=== PATIENT | female | born 1995 | race Caucasian/White ===

== ENCOUNTER 2016-12-03 23:08 | Emergency (ER) | payer SELFPAY ==
--- NOTE | 2016-12-04 01:39 | ED NURSING NOTES ---
Clinical Report - Nurses [facility] [address] [place] [address] 12/03/2016 23:10 Patient: DOLORES UNDERWOOD TRIAGE Triage time 23:15. Acuity: LEVEL 3. Chief Complaint: VOMITING and DIARRHEA. 23:21. Alert. --23:21 Aramis Garsia R.N. 23:14 12/03/16. BP: 199/77. HR: 138. RR: 16. O2 saturation: 97%. Temp: 98.6 F. Pain level now: 0/10. --23:21 Aramis Garsia R.N. Weight: 83.9 kg stated. Height/Length: 65.5 inches Per Patient. BMI: 30.3. --23:21 Aramis Garsia R.N. Medications None. --23:18 Aramis Garsia R.N. Medication/allergy information source: the patient. --23:21 Aramis Garsia R.N. Allergies No Known Drug Allergy. --23:18 Aramis Garsia R.N. History Arrived by private vehicle. Historian: patient. Accompanied by friend. This started today. 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 PAST MEDICAL HX: Immunizations: up-to-date. Last normal menstrual period was 1 week ago. SOCIAL HX: Current every day light tobacco smoker- less than 1/2 a pack per day. Occasional alcohol use. No drug use. No recent travel. No infectious disease exposure. ABUSE ASSESSMENT: No report of abuse. FALL RISK ASSESSMENT: Fall risk assessment completed. No fall risk identified. NUTRITIONAL RISK ASSESSMENT: The nutritional risk assessment revealed no deficiencies. FUNCTIONAL ASSESSMENT: Functional assessment: no impairments noted. LEARNING NEEDS ASSESSMENT: The learning needs assessment revealed no barriers. SKIN INTEGRITY ASSESSMENT: Skin integrity risk assessment completed. No skin integrity risk identified. --23:21 Aramis Garsia R.N. PROBLEMS: no known problems. ADDITIONAL SURGERIES: Dog bite repair. --23:19 Aramsi Garsia R.N. Interventions ID band on patient. To treatment room. --23:21 Aramis Garsia R.N. PHYSICAL ASSESSMENT 23:15. Ambulatory to room. Patient gowned. GENERAL / NEURO / PSYCH: Alert. Oriented X 4. HEENT: Mucous membranes are pink. RESPIRATORY: Respirations not labored. SKIN: Skin is warm and dry. --23:16 Aramis Garsia R.N. NURSING PROGRESS NOTES Head of bed elevated. Two patient identifiers checked. Call light placed in reach. Bed placed in lowest position. Brakes of bed on. Patient ready for evaluation- chart flagged. --23:15 Aramis Garsia R.N. 23:15. Patient ID band checked for patient name and birthdate: patient confirmed. Clean catch urine collected with return of yellow-colored adrián-colored clear urine; sample sent to lab for urinalysis. Specimen labeled in the presence of the patient. --23:21 Aramis Garsia R.N. 23:25 12/03/2016 Site #1 started via IV in the right antecubital space with an 22g angiocath, with aseptic technique and good blood return; one attempt. Blood drawn: rainbow set. Labeled in the presence of the patient and sent to the lab. Saline lock flushed with 10 mL saline (by Naomi CARMONA). --23:27 Aramis Garsia R.N. 23:27 12/03/2016 Started bag #1 1000 mL IV Fluids IV NS (Saline); at 1000 mL/hr over 1 hour(s) via site #1 --23:28 Aramis Garsia R.N. 23:31 12/03/2016 Zofran (Ondansetron HCl) IVP 4 mg given over 2 minute(s) via site #1. Allergies verified and confirmed 5 rights. IV patency established. IV site checked: no pain, redness, or swelling. IV flushed thoroughly pre- and post-medication administration. --23:33 Aramis Garsia R.N. 23:47 12/03/2016 Imodium (Loperamide HCl) PO 2 mg given. Allergies verified and confirmed 5 rights. --23:47 Aramis Garsia R.N. 01:25 12/04/16. HR: 98. O2 saturation: 100%. --01:27 Aramis Garsia R.N. 01:15. The patient is calm and resting quietly. SKIN: Skin is warm and dry. Skin color within normal limits. --:27 Aramis Garsia R.N. 00:53 12/04/2016 IV Fluids IV NS Discontinued: bag #1 infused. Total amount infused: 1000 mL. IV patency established. IV site checked: no pain, redness, or swelling. IV flushed thoroughly. --02: Aramis Garsia R.N. 01:56. The patient is calm and resting quietly. SKIN: Skin is warm and dry. Skin color within normal limits. --02: Aramis Garsia R.N. DISPOSITION / DISCHARGE 01:54 12/04/2016 Site #1 removed upon discharge. Catheter intact. Bandage applied. --: Aramis Garsia R.N. Departure time: 01:58. Condition at departure: stable. No learning barriers present. Discharge instructions provided and reviewed with stator connector and the patient. Reviewed medication(s) side effects, precautions, dosing and course information. Prescription(s) given to the patient. Patient and stator connector verbalized understanding. Written instructions provided in Paraguayan. The patient was discharged home and accompanied by stator connector. She left the Emergency Department ambulatory and via private vehicle. Cast Iron Drain Pipe Layer driving. FALL RISK ASSESSMENT: Fall risk assessment completed. No fall risk identified. --: Aramis Garsia R.N. 01:52 12/04/16. BP: 103/57. HR: 99. RR: 16. O2 saturation: 99%. Pain level now: 0/10. --: Aramis Garsia R.N. Locked/Released at 12/04/2016 2:02 by Aramis Garsia R.N.
--- NOTE | 2016-12-04 01:39 | ED CLINICAL REPORT ---
Clinical Report - Physicians/Mid Levels [facility] [address] [place] [address] 12/03/2016 23:10 Patient: DOLORES UNDERWOOD Arrived- By private vehicle. Historian- patient. HISTORY OF PRESENT ILLNESS Chief Complaint: VOMITING and DIARRHEA. This started for the past day and is still present (staying the same). It was abrupt in onset and has been intermittent but is not gone now. No recent travel. She has had nausea, vomiting and diarrhea. No black stools, bloody stools, abdominal pain, history of possible bad food exposure or known contact with a sick individual. No change in routine. Has not recently been camping or on antibiotics. The illness is described as moderate. Similar symptoms previously: None. Recent medical care: Not recently seen/assessed. REVIEW OF SYSTEMS No fever or skin rash. All systems otherwise negative, except as recorded above. PAST HISTORY See nurses notes. Problems: no known problems. Medications: None. Allergies: No Known Drug Allergy. SOCIAL HISTORY Smoker- current status unknown. No alcohol use or drug use. No recent travel. Is a local resident. ADDITIONAL NOTES The nursing notes have been reviewed. PHYSICAL EXAM Vital Signs: 12/03/2016 23:14 BP: 199/77. HR: 138. RR: 16. O2 saturation: 97%. Temp: 98.6 F. Pain level now: 0/10. Blood pressure normal. Oxygen saturation normal. Appearance: Alert. Oriented X3. No acute distress. Eyes: Pupils equal, round and reactive to light. Eyes normal inspection. ENT: Ears normal. Nose normal. Pharynx normal. Neck: Normal inspection. Neck supple. CVS: Normal heart rate and rhythm. Heart sounds normal. Pulses normal. Respiratory: No respiratory distress. Breath sounds normal. Abdomen: Soft and nontender. Bowel sounds normal. No mass. No abdominal tenderness. Back: Normal inspection. Skin: Skin warm and dry. Normal skin color. No rash. Normal skin turgor. Extremities: Extremities exhibit normal ROM. No lower extremity edema. LABS, X-RAYS, AND EKG Laboratory Tests: UA-Culture if indicated: (MERCEDES: 12/03/2016 23:25) ( [facility] [place] 23:50[place] Final results Test Result Flag Units (Reference) URINE COLOR YELLOW URINE APPEARANCE CLEAR URINE GLUCOSE NEGATIVE (NEGATIVE) URINE BILIRUBIN 2+ (NEGATIVE) URINE KETONE 2+ (NEGATIVE) URINE SPECIFIC GRAVITY >= 1.030 (1.010-1.030) URINE PH 6.0 (5.0-8.0) URINE PROTEIN 2+ (NEGATIVE) URINE UROBILINOGEN 0.2 EU/dL (0.2-1.0) URINE NITRITE NEGATIVE (NEGATIVE) URINE BLOOD NEGATIVE (NEGATIVE) URINE LEUK ESTERASE NEGATIVE (NEGATIVE) URINE RBC 0-1 rbc/hpf (0-1) URINE WBC 1-3 wbc/hpf (0-1) URINE EPITHELIAL CELLS 1-3 EPI/hpf (0-5) URINE BACTERIA MODERATE (2+ TO 3+) (NONE SEEN) URINE COMMENT CULTURE INDICATED URINE CULTURES ARE SET-UP BASED ON THE FOLLOWING CRITERIA:POSITIVE NITRITEPOSITIVE LEUKOCYTE ESTERASEGREATER THAN 10 WHITE BLOOD CELLSMODERATE (2+) OR GREATER BACTERIA CBC w Diff: (MERCEDES: 12/03/2016 23:25) ( [facility] [place] 23:49) Final results Test Result Flag Units (Reference) WHITE BLOOD COUNT 18.7 H K/uL (4.5-11.5) RED BLOOD COUNT 5.61 H M/uL (4.00-5.20) HEMOGLOBIN 16.8 H gm/dL (12.0-16.0) HEMATOCRIT 50.8 H % (36.0-46.0) MEAN CELL VOLUME 91 fL (80-100) MEAN CORPUSCULAR HGB 30 pg (26-34) MEAN CORPUSCULAR HGB CONC 33 g/dL (31-37) RED CELL DISTRIBUTION WIDTH 12.5 % (11.6-14.8) PLATELET COUNT 219 K/uL (150-400) LYMPH % 4.6 L % (25-40) MONO % 3.0 % (3-14) GRANULOCYTE % 92.4 H (53-90) CMP: (MERCEDES: 12/03/2016 23:25) ( [facility] [place]/03/2016 23:59) Final results Test Result Flag Units (Reference) GLUCOSE 136 H mg/dL (70-110) BUN 15 mg/dL (7-18) CREATININE 1.0 mg/dL (0.6-1.3) Estimated GFR >60 mL/min Estimated GFR- >60 mL/min Note: Persistent reduction over 3 months in eGFR<60 mL/min/1.73 m2 defines CKD. Patients with eGFR values>=60 mL/min/1.73 m2 may also have CKD if evidence ofpersistent proteinuria. Additional information may be foundat www.kidney.org. SODIUM 142 mmol/L (136-145) POTASSIUM 4.1 mmol/L (3.5-5.1) CHLORIDE 105 mmol/L (98-107) CARBON DIOXIDE 23 mmol/L (21-32) CALCIUM 9.0 mg/dL (8.5-10.1) TOTAL PROTEIN 8.0 g/dL (6.4-8.2) ALBUMIN 4.4 g/dL (3.3-5.0) BILIRUBIN, TOTAL 0.6 mg/dL (0.0-1.0) ALKALINE PHOSPHATASE 64 U/L (46-116) AST (SGOT) 19 U/L (15-37) ALT (SGPT) 44 U/L (12-78) LIPASE 115 U/L (73-393) BETA HCG, QUANTITATIVE <1 mIU/mL REFERENCE RANGE:Adult Males: <2 mIU/mLNon- Females: <6 mIU/mL Females:Approximate Approximate hCGGestational Age Range (mIU/mL) 0-1 week 0-501-2 weeks 40-3002-3 weeks 100-39340-9 weeks 500-90196-7 months 5,000-200,0002-3 months 10,000-100,0002nd trimester 3,000-50,0003rd trimester 1,000-50,000 . PROGRESS AND PROCEDURES Course of Care: The patient is a 21-year-old female presenting for evaluation nausea, vomiting, diarrhea. Patient is in no acute distress. At this time differential diagnosis includes hepatitis, gastritis, appendicitis, urinary tract infection, Or ectopic . Patient is agreeable to the treatment plan. Urinalysis, CMP, CBC, lipase have been ordered. Nausea vomiting medication and also been ordered as well as antidiarrheal medication. Patient is agreeable to treatment and plan. If workup does not show any acute abnormalities, do not feel imaging would be required at this time. Workup does not show any acute abdomen maladies. Symptoms had significantly improved while here in the emergt unremarkable laboratory tests patient is a good outpatient candidate. Do not feel patient has state abnormality requiring further emergency department evaluation or workup. Patient's abdomen is nontender. Patient is not reporting any pain while here in the emergency department. Do not fill patient is a surgical abdomen. There are no electrolyte abnormalities or liver enzymes and abnormalities associated with symptoms here in the emergency department today. Patient continues to be nontoxic and is in no acute distress. Discussed with patient workup, diagnosis, home care, follow-up, and return precautions. All questions answered. The patient expressed understanding of these instructions and was agreeable to them. Disposition: Discharged. Condition: good. CLINICAL IMPRESSION Vomiting with nausea (acute). Diarrhea (acute). 12/04/2016 01:25 HR: 98. O2 saturation: 100%. 12/03/2016 23:14 BP: 199/77. HR: 138. RR: 16. O2 saturation: 97%. Temp: 98.6 F. Pain level now: 0/10. Blood pressure normal. Oxygen saturation normal. Essential hypertension. Mild leukocytosis (acute). No bandemia. INSTRUCTIONS Warnings: GENERAL WARNINGS: Return or contact your physician immediately if your condition worsens or changes unexpectedly, if not improving as expected, or if other problems arise. SPECIFICALLY, return if you develop pain in the abdomen, fever, vomiting, the inability to keep fluids down, blood in vomitus, blood in diarrhea, fainting or lightheadedness. Your Current Medications: CONTINUE TAKING THE FOLLOWING MEDICATIONS: None*. Prescription Medications: Zofran (orally disintegrating tablets) 4 mg: take 1 orally every 8 hours as needed for nausea and vomiting. Dispense five (5). No refill. Substitution is permissible. OTC Medications: Imodium (available over the counter): take according to label instructions. Follow-up: Return to the emergency department as needed. Follow up with your doctor in three days. Reason for referral: recheck today's concerns. Summary of care provided to patient via paper. Screening today revealed the patient's blood pressure to be in the hypertensive range. The patient should follow up with a primary care provider for blood pressure management. Understanding of the discharge instructions verbalized by patient. Follow-up with: [facility], , , [address], , [place], [address] Follow up. Reason for referral: contact if you do not have a primary care doctor and would like one. Summary of care provided to patient via paper. (Electronically signed by Benigno Worthy Dr. 12/04/2016 7:57)
--- NOTE | 2016-12-04 01:39 | ED ORDER SUMMARY ---
..... Patient: DOLORES UNDEWROOD OrderSheet [facility] VisitID: [id number] [place] [address] 21y, F Registration Date/Time: 12/03/2016 ORDER SHEET Weight: 83.9 kg (stated) Allergies: No Known Drug Allergy GENERAL ORDERS: CBC w Diff Urgent (23:12/03/2016 Jason Verduzco) (Ack 23:29 Minal) (23:33 JQuivey R.N.) CMP Urgent (:12/03/2016 Jason Verduzco) (Ack 23:29 Minal) (23:33 JQuivey R.N.) UA-Culture if indicated Urgent (:12/03/2016 Jason Verduzco) (Ack 23:30 Minal) (23:33 JQuivey R.N.) Lipase Urgent (:12/03/2016 Jason Verduzco) (Ack 23:30 Minal) (23:33 JQuivey R.N.) Serum Quantitative Urgent (:12/03/2016 Jason Verdzuco) (Ack 23:30 Minal) (23:33 JQuivey R.N.) MEDICATION ORDERS: Imodium PO 2 mg (once 15 minutes after zofran) (:12/03/2016 Jason Verduzco) (Ack 23:30 JQuivey R.N.) (23:47 JQuivey R.N.) IV FLUIDS: IV NS : initial bolus 1000 mL (1000 mL/hr), then none - for X1 (NOW) (:12/03/2016 Jason Verduzco) (23:28 JQuivey R.N.) Zofran IV 4 mg (NOW) (:12/03/2016 Jason Verduzco) (Ack 23:30 JQuivey R.N.) (23:33 JQuivey R.N.) ORDER SHEET NOTES: [Electronically signed by Aramis Garsia R.N. (02:12/04/2016)] [Electronically signed by Benigno Worthy Dr. (07:57 12/04/2016)] [Electronically locked/signed by Aramis Garsia R.N. (02:02 12/04/2016)]
--- NOTE | 2016-12-04 01:39 | ED NURSING NOTES ---
Clinical Report - Nurses [facility] [address] [place] [address] 12/03/2016 23:10 Patient: DOLORES UNDERWOOD TRIAGE Triage time 23:15. Acuity: LEVEL 3. Chief Complaint: VOMITING and DIARRHEA. 23:21. Alert. --23:21 Aramis Garsia R.N. 23:14 12/03/16. BP: 199/77. HR: 138. RR: 16. O2 saturation: 97%. Temp: 98.6 F. Pain level now: 0/10. --23:21 Aramis Garsia R.N. Weight: 83.9 kg stated. Height/Length: 65.5 inches Per Patient. BMI: 30.3. --23:21 Aramis Garsia R.N. Medications None. --23:18 Aramis Garsia R.N. Medication/allergy information source: the patient. --23:21 Aramis Garsia R.N. Allergies No Known Drug Allergy. --23:18 Aramis Garsia R.N. History Arrived by private vehicle. Historian: patient. Accompanied by friend. This started today. 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 PAST MEDICAL HX: Immunizations: up-to-date. Last normal menstrual period was 1 week ago. SOCIAL HX: Current every day light tobacco smoker- less than 1/2 a pack per day. Occasional alcohol use. No drug use. No recent travel. No infectious disease exposure. ABUSE ASSESSMENT: No report of abuse. FALL RISK ASSESSMENT: Fall risk assessment completed. No fall risk identified. NUTRITIONAL RISK ASSESSMENT: The nutritional risk assessment revealed no deficiencies. FUNCTIONAL ASSESSMENT: Functional assessment: no impairments noted. LEARNING NEEDS ASSESSMENT: The learning needs assessment revealed no barriers. SKIN INTEGRITY ASSESSMENT: Skin integrity risk assessment completed. No skin integrity risk identified. --23:21 Aramis Garsia R.N. PROBLEMS: no known problems. ADDITIONAL SURGERIES: Dog bite repair. --23:19 Aramis Garsia R.N. Interventions ID band on patient. To treatment room. --23:21 Aramis Garsia R.N. PHYSICAL ASSESSMENT 23:15. Ambulatory to room. Patient gowned. GENERAL / NEURO / PSYCH: Alert. Oriented X 4. HEENT: Mucous membranes are pink. RESPIRATORY: Respirations not labored. SKIN: Skin is warm and dry. --23:16 Aramis Garsia R.N. NURSING PROGRESS NOTES Head of bed elevated. Two patient identifiers checked. Call light placed in reach. Bed placed in lowest position. Brakes of bed on. Patient ready for evaluation- chart flagged. --23:15 Aramis Garsia R.N. 23:15. Patient ID band checked for patient name and birthdate: patient confirmed. Clean catch urine collected with return of yellow-colored adrián-colored clear urine; sample sent to lab for urinalysis. Specimen labeled in the presence of the patient. --23:21 Aramis Garsia R.N. 23:25 12/03/2016 Site #1 started via IV in the right antecubital space with an 22g angiocath, with aseptic technique and good blood return; one attempt. Blood drawn: rainbow set. Labeled in the presence of the patient and sent to the lab. Saline lock flushed with 10 mL saline (by Naomi CARMONA). --23:27 Aramis Garsia R.N. 23:27 12/03/2016 Started bag #1 1000 mL IV Fluids IV NS (Saline); at 1000 mL/hr over 1 hour(s) via site #1 --23:28 Aramis Garsia R.N. 23:31 12/03/2016 Zofran (Ondansetron HCl) IVP 4 mg given over 2 minute(s) via site #1. Allergies verified and confirmed 5 rights. IV patency established. IV site checked: no pain, redness, or swelling. IV flushed thoroughly pre- and post-medication administration. --23:33 Aramis Garsia R.N. 23:47 12/03/2016 Imodium (Loperamide HCl) PO 2 mg given. Allergies verified and confirmed 5 rights. --23:47 Aramis Garsia R.N. 01:25 12/04/16. HR: 98. O2 saturation: 100%. --01:27 Aramis Garsia R.N. 01:15. The patient is calm and resting quietly. SKIN: Skin is warm and dry. Skin color within normal limits. --:27 Aramis Garsia R.N. 00:53 12/04/2016 IV Fluids IV NS Discontinued: bag #1 infused. Total amount infused: 1000 mL. IV patency established. IV site checked: no pain, redness, or swelling. IV flushed thoroughly. --02: Aramis Garsia R.N. 01:56. The patient is calm and resting quietly. SKIN: Skin is warm and dry. Skin color within normal limits. --02: Aramis Garsia R.N. DISPOSITION / DISCHARGE 01:54 12/04/2016 Site #1 removed upon discharge. Catheter intact. Bandage applied. --: Aramis Garsia R.N. Departure time: 01:58. Condition at departure: stable. No learning barriers present. Discharge instructions provided and reviewed with manager of distribution and the patient. Reviewed medication(s) side effects, precautions, dosing and course information. Prescription(s) given to the patient. Patient and manager of distribution verbalized understanding. Written instructions provided in [place]ian. The patient was discharged home and accompanied by manager of distribution. She left the Emergency Department ambulatory and via private vehicle. Equal Employment Opportunity Officer driving. FALL RISK ASSESSMENT: Fall risk assessment completed. No fall risk identified. --: Aramis Garsia R.N. 01:52 12/04/16. BP: 103/57. HR: 99. RR: 16. O2 saturation: 99%. Pain level now: 0/10. --: Aramis Garsia R.N. Locked/Released at 12/04/2016 2:02 by Aramis Garsia R.N.
--- NOTE | 2016-12-04 01:39 | ED ORDER SUMMARY ---
..... Patient: DOLORES UNDERWOOD OrderSheet [facility] VisitID: [id number] [place] [address] 21y, F Registration Date/Time: 12/03/2016 ORDER SHEET Weight: 83.9 kg (stated) Allergies: No Known Drug Allergy GENERAL ORDERS: CBC w Diff Urgent (23:12/03/2016 Jason Verduzco) (Ack 23:29 Minal) (23:33 JQuivey R.N.) CMP Urgent (:12/03/2016 Jason Verduzco) (Ack 23:29 Minal) (23:33 JQuivey R.N.) UA-Culture if indicated Urgent (:12/03/2016 Jason Verduzco) (Ack 23:30 Minal) (23:33 JQuivey R.N.) Lipase Urgent (:12/03/2016 Jason Verduzco) (Ack 23:30 Minal) (23:33 JQuivey R.N.) Serum Quantitative Urgent (:12/03/2016 Jason Verduzco) (Ack 23:30 Minal) (23:33 JQuivey R.N.) MEDICATION ORDERS: Imodium PO 2 mg (once 15 minutes after zofran) (:12/03/2016 Jason Verduzco) (Ack 23:30 JQuivey R.N.) (23:47 JQuivey R.N.) IV FLUIDS: IV NS : initial bolus 1000 mL (1000 mL/hr), then none - for X1 (NOW) (:12/03/2016 Jason Verduzco) (23:28 JQuivey R.N.) Zofran IV 4 mg (NOW) (:12/03/2016 Jason Verduzco) (Ack 23:30 JQuivey R.N.) (23:33 JQuivey R.N.) ORDER SHEET NOTES: [Electronically signed by Aramis Garsia R.N. (02:12/04/2016)] [Electronically signed by Benigno Worthy Dr. (07:57 12/04/2016)] [Electronically locked/signed by Aramis Garsia R.N. (02:02 12/04/2016)]
--- NOTE | 2016-12-04 07:57 | ED MED RECONCILIATION SUMMARY ---
Patient: DOLORES UNDERWOOD Medication Reconciliation Report [facility] VisitID: [id number] [address] [place] [address] 21y, F Registration Date/Time: 12/03/2016 Weight: 83.9 kg Height/Length: (not available) BMI: 30.3 ALLERGIES: No Known Drug Allergy The patient's Home Medications are listed below: NONE. The source(s) of the original Home Medication information: patient The following Medications were given to the patient in the Emergency Department: IV NS IV Fluids bolus 0, then 1000 mL/hr, administered: 12/03/2016 11:27:00 PM Zofran [IVP] IVP 4 mg, administered: 12/03/2016 11:31:00 PM Imodium [PO] PO 2 mg, administered: 12/03/2016 11:47:00 PM The following Medications were prescribed to the patient: Zofran (orally disintegrating tablets) 4 mg: take 1 orally every 8 hours as needed for nausea and vomiting. Dispense five (5). No refill. Substitution is permissible. -- Benigno Worthy Dr. Imodium (available over the counter): take according to label instructions. -- Benigno Worthy Dr.
--- NOTE | 2016-12-04 07:57 | ED MED RECONCILIATION SUMMARY ---
Patient: DOLORES UNDERWOOD Medication Reconciliation Report [facility] VisitID: [id number] [address] [place] [address] 21y, F Registration Date/Time: 12/03/2016 Weight: 83.9 kg Height/Length: (not available) BMI: 30.3 ALLERGIES: No Known Drug Allergy The patient's Home Medications are listed below: NONE. The source(s) of the original Home Medication information: patient The following Medications were given to the patient in the Emergency Department: IV NS IV Fluids bolus 0, then 1000 mL/hr, administered: 12/03/2016 11:27:00 PM Zofran [IVP] IVP 4 mg, administered: 12/03/2016 11:31:00 PM Imodium [PO] PO 2 mg, administered: 12/03/2016 11:47:00 PM The following Medications were prescribed to the patient: Zofran (orally disintegrating tablets) 4 mg: take 1 orally every 8 hours as needed for nausea and vomiting. Dispense five (5). No refill. Substitution is permissible. -- Benigno Worthy Dr. Imodium (available over the counter): take according to label instructions. -- Benigno Worthy Dr.
--- NOTE | 2016-12-04 07:57 | ED DISCHARGE INSTRUCTIONS ---
Patient: DOLORES UNDERWOOD General Instructions [facility] VisitID: [id number] [address] [place] [address] 21y, F Registration Date/Time: 12/03/2016 Vomiting with nausea (acute). Diarrhea (acute). 12/04/2016 01:25 HR: 98. O2 saturation: 100%. 12/03/2016 23:14 BP: 199/77. HR: 138. RR: 16. O2 saturation: 97%. Temp: 98.6 F. Pain level now: 0/10. Blood pressure normal. Oxygen saturation normal. Essential hypertension. Mild leukocytosis (acute). No bandemia. INSTRUCTIONS Warnings: GENERAL WARNINGS: Return or contact your physician immediately if your condition worsens or changes unexpectedly, if not improving as expected, or if other problems arise. SPECIFICALLY, return if you develop pain in the abdomen, fever, vomiting, the inability to keep fluids down, blood in vomitus, blood in diarrhea, fainting or lightheadedness. Your Current Medications: CONTINUE TAKING THE FOLLOWING MEDICATIONS: None*. Prescription Medications: Zofran (orally disintegrating tablets) 4 mg: take 1 orally every 8 hours as needed for nausea and vomiting. Dispense five (5). No refill. Substitution is permissible. OTC Medications: Imodium (available over the counter): take according to label instructions. Follow-up: Return to the emergency department as needed. Follow up with your doctor in three days. Reason for referral: recheck today's concerns. Summary of care provided to patient via paper. Screening today revealed the patient's blood pressure to be in the hypertensive range. The patient should follow up with a primary care provider for blood pressure management. Understanding of the discharge instructions verbalized by patient. Follow-up with: [facility], , , [address] [place], [place], [address] Follow up. Reason for referral: contact if you do not have a primary care doctor and would like one. Summary of care provided to patient via paper. ADDITIONAL INFORMATION Vomiting [6Yr-Adult] Vomiting is a common symptom that may be due to different causes. These include gastroenteritis ("stomach flu"), food poisoning and gastritis. There are other more serious causes of vomiting which may be hard to diagnose early in the illness. Therefore, it is important to watch for the warning signs listed below. The main danger from repeated vomiting is dehydration. This is due to excess loss of water and minerals from the body. When this occurs, body fluids must be replaced. Home Care: If symptoms are severe, rest at home for the next 24 hours. You may use acetaminophen (Tylenol) or ibuprofen (Motrin, Advil) to control fever, unless another medicine was prescribed. [NOTE : If you have chronic liver or kidney disease or ever had a stomach ulcer or GI bleeding, talk with your doctor before using these medicines.] (Aspirin should never be used in anyone under 18 years of age who is ill with a fever. It may cause severe liver damage.) Avoid tobacco and alcohol use, which may worsen your symptoms. If medicines for vomiting were prescribed, take as directed. Once vomiting stops, then follow these guidelines: During The First 12-24 Hours follow the diet below: FRUIT JUICES: Apple, grape juice, clear fruit drinks, and electrolyte replacement drinks. BEVERAGES: Soft drinks without caffeine; mineral water (plain or flavored), decaffeinated tea and coffee. SOUPS: Clear broth, consomm and bouillon DESSERTS: Plain gelatin, popsicles and fruit juice bars. As you feel better, you may add 6-8 ounces of yogurt per day. During The Next 24 Hours you may add the following to the above: Hot cereal, plain toast, bread, rolls, crackers Plain noodles, rice, mashed potatoes, chicken noodle or rice soup Unsweetened canned fruit (avoid pineapple), bananas Limit caffeine and chocolate. No spices or seasonings except salt. During The Next 24 Hours Gradually resume a normal diet, as you feel better and your symptoms lessen. Follow Up with your doctor as advised if you are not improving over the next 2-3 days. Get Prompt Medical Attention if any of the following occur: Constant right-sided lower abdominal pain or increasing general abdominal pain Continued vomiting (unable to keep liquids down) for 24 hours Frequent diarrhea (more than 5 times a day); blood (red or black color) or mucus in diarrhea Reduced urine output or extreme thirst Weakness, dizziness or fainting Unusually drowsy or confused Fever of 100.4F (38C) oral or higher, not better with fever medication Yellow color of the eyes or skin Diarrhea, Uncertain Cause (Adult, Report Pending) Diarrhea has several possible causes. Commonstomach fluis caused by a virus. Food poisoning, bacteria or parasites are other causes for diarrhea. Only diarrhea caused by bacteria or parasites requires treatment with an antibiotic. Diarrhea from a virus or food poisoning improves with simple home treatment. A stool sample is needed to make the diagnosis of an infection with bacteria or parasites. Up to three stool specimens may be required to diagnose This may take up to two days to get the result. It may be necessary to wait until the stool test is complete to make the diagnosis and select the best antibiotic to prescribe. Home Care: If symptoms are severe, rest at home for the next 24 hours or until you are feeling better. You may use acetaminophen (Tylenol) or ibuprofen (Motrin, Advil) to control fever, unless another medicine was prescribed. [NOTE: If you have chronic liver or kidney disease or ever had a stomach ulcer or GI bleeding, talk with your doctor before using these medicines.] (Aspirin should never be used in anyone under 18 years of age who is ill with a fever. It may cause severe liver damage.) Avoid tobacco, caffeine and alcohol, which may worsen your symptoms. If anti-diarrhea medicine was prescribed, take this only as directed. Sometimes anti-diarrhea medicine can make your condition worse if the cause is an infectious diarrhea. Therefore, anti-diarrhea medicine should not be taken for this condition unless advised by your doctor. During The First 12-24 Hours follow the diet below: BEVERAGES: Sport drinks like Gatorade, soft drinks without caffeine; ruslan augusto, mineral water (plain or flavored), decaffeinated tea and coffee. SOUPS: Clear broth, consomm and bouillon DESSERTS: Plain gelatin (Jell-O), popsicles and fruit juice bars. During The Next 24 Hours you may add the following to the above: Hot cereal, plain toast, bread, rolls, crackers Plain noodles, rice, mashed potatoes, chicken noodle or rice soup Unsweetened canned fruit (avoid pineapple), bananas Limit fat intake to less than 15 grams per day by avoiding margarine, butter, oils, mayonnaise, sauces, gravies, fried foods, peanut butter, meat, poultry and fish. Limit fiber; avoid raw or cooked vegetables, fresh fruits (except bananas) and bran cereals. Limit caffeine and chocolate. No spices or seasonings except salt. During The Next 24 Hours Gradually resume a normal diet, as you feel better and your symptoms lessen. Follow Up with your doctor or as advised if you are not improving over the next two days. If you were asked to bring a specimen from home, bring the sample on the day of collection. You may call in 2 days (or as directed) for the results. Get Prompt Medical Attention if any of the following occur: Increasing abdominal pain or constant lower right abdominal pain Continued vomiting (unable to keep liquids down) Frequent diarrhea (more than 5 times a day) Blood in vomit or stool (black or red color) Reduced oral intake Dark urine, reduced urine output Weakness, dizziness, fainting Drowsiness, confusion, stiff neck or seizure Fever of 100.4F (38C) oral or higher, not better with fever medication New rash High Blood Pressure -- To Be Confirmed [No Tx] Your blood pressure was higher today than normal. Sometimes anxiety or pain can cause a temporary rise in blood pressure that later returns to normal. If your blood pressure is high on one measurement, this does not mean that you have hypertension (a chronic illness). However, you must have your blood pressure measured again within the next few days to find out if its still high. A normal blood pressure is 120/80 or less. The first (top) number is the "systolic" pressure. The second (bottom) number is the "diastolic" pressure. Hypertension exists when either the top number is 140 or higher, OR the bottom number is 90 or higher on repeated measurements. Blood pressure in the range of 120-140 (systolic) or 80-89 (diastolic) is considered "pre-hypertension". This means your are at risk for getting hypertension. You should have regular blood pressure checks to be sure your blood pressure is not rising. Home Care: Measure your blood pressure on 3 different days and write down the results. This can be done at your doctor's office or this facility. Some pharmacies and grocery stores offer automated blood pressure machines for your use. Follow Up: If your blood pressure is "high" (over 120/80) on 2 out of 3 days, you will need to follow up with your doctor for further evaluation and treatment. DO NOT PUT THIS OFF! Untreated high blood pressure increases the risk for heart attack, also known as acute myocardial infarction, or AMI, and stroke. It is a treatable condition. Get Prompt Medical Attention if any of the following occur: Chest pain or shortness of breath Severe headache Throbbing or rushing sound in the ears Nosebleed Sudden severe abdominal pain Extreme drowsiness, confusion or fainting Dizziness or vertigo (dizziness with spinning sensation) Weakness of an arm or leg or one side of the face Difficulty with speech or vision Ondansetron Oral disintegrating tablet What is this medicine? ONDANSETRON (on MIKAYLA se quan) is used to treat nausea and vomiting caused by chemotherapy. It is also used to prevent or treat nausea and vomiting after surgery. How should I use this medicine? These tablets are made to dissolve in the mouth. Do not try to push the tablet through the foil backing. With dry hands, peel away the foil backing and gently remove the tablet. Place the tablet in the mouth and allow it to dissolve, then swallow. While you may take these tablets with water, it is not necessary to do so. Talk to your slate picker regarding the use of this medicine in children. Special care may be needed. What side effects may I notice from receiving this medicine? Side effects that you should report to your doctor or health memory care director as soon as possible: allergic reactions like skin rash, itching or hives, swelling of the face, lips, or tongue breathing problems dizziness fast or irregular heartbeat feeling faint or lightheaded, falls fever and chills swelling of the hands and feet tightness in the chest Side effects that usually do not require medical attention (report to your doctor or health memory care director if they continue or are bothersome): constipation or diarrhea headache What may interact with this medicine? Do not take this medicine with any of the following medications: -apomorphine -cisapride -dofetilide -dronedarone -pimozide -thioridazine -ziprasidone This medicine may also interact with the following medications: -carbamazepine -phenytoin -rifampicin -tramadol -other medicines that prolong the QT interval (cause an abnormal heart rhythm) What if I miss a dose? If you miss a dose, take it as soon as you can. If it is almost time for your next dose, take only that dose. Do not take double or extra doses. Where should I keep my medicine? Keep out of the reach of children. Store between 2 and 30 degrees C (36 and 86 degrees F). Throw away any unused medicine after the expiration date. What should I tell my health care provider before I take this medicine? They need to know if you have any of these conditions: heart disease history of irregular heartbeat liver disease low levels of magnesium or potassium in the blood an unusual or allergic reaction to ondansetron, granisetron, other medicines, foods, dyes, or preservatives or trying to get breast-feeding What should I watch for while using this medicine? Check with your doctor or health memory care director as soon as you can if you have any sign of an allergic reaction. You have been given the following additional information: Vomiting (6Y-Adult) Diarrhea, Unk Cause (Adult) Report Pendg Hypertension, To Be Confirmed Ondansetron Oral disintegrating tablet (Electronically signed by Benigno Worthy Dr. 12/04/2016 7:57)
--- NOTE | 2016-12-04 07:57 | ED MAR SUMMARY ---
..... Medication Administration Record [facility] [address] [place] [place] [address] Patient: DOLORES UNDERWOOD Visit ID: [id number] 21y, F Weight: 83.9 kg Height/Length: 65.5 in BMI: 30.3 ALLERGIES: No Known Drug Allergy Start 23:27 12/03/2016 Aramis Garsia R.NYusra, Stop 00:53 12/04/2016 Aramis Garsia R.N. Medication Administered: IV NS (SALINE), Dose: IV Fluids over 1 hour(s), Rate: 1000 mL/hr, Dispensed: 1000 mL bag, Site: #1 right AC. Medication Ordered: IV NS : initial bolus 1000 mL (1000 mL/hr), then none - for X1 (NOW). Given 23:31 12/03/2016 Aramis Garsia R.N. Medication Administered: ZOFRAN [IVP] (ONDANSETRON HCL), Dose: 4 mg IVP over 2 minute(s), Site: #1 right AC. Medication Ordered: Zofran IV 4 mg (NOW). Given 23:47 12/03/2016 Aramis Garsia R.N. Medication Administered: IMODIUM [PO] (LOPERAMIDE HCL), Dose: 2 mg PO. Medication Ordered: Imodium PO 2 mg (once 15 minutes after zofran).
--- NOTE | 2016-12-04 07:57 | ED MAR SUMMARY ---
..... Medication Administration Record [facility] [address] [place] [address] Patient: DOLORES UNDERWOOD Visit ID: [id number] 21y, F Weight: 83.9 kg Height/Length: 65.5 in BMI: 30.3 ALLERGIES: No Known Drug Allergy Start 23:27 12/03/2016 Aramis Garsia R.NYusra, Stop 00:53 12/04/2016 Aramis Garsia R.N. Medication Administered: IV NS (SALINE), Dose: IV Fluids over 1 hour(s), Rate: 1000 mL/hr, Dispensed: 1000 mL bag, Site: #1 right AC. Medication Ordered: IV NS : initial bolus 1000 mL (1000 mL/hr), then none - for X1 (NOW). Given 23:31 12/03/2016 Aramis Garsia R.N. Medication Administered: ZOFRAN [IVP] (ONDANSETRON HCL), Dose: 4 mg IVP over 2 minute(s), Site: #1 right AC. Medication Ordered: Zofran IV 4 mg (NOW). Given 23:47 12/03/2016 Aramis Garsia R.N. Medication Administered: IMODIUM [PO] (LOPERAMIDE HCL), Dose: 2 mg PO. Medication Ordered: Imodium PO 2 mg (once 15 minutes after zofran).
== END 2016-12-04 01:58 | disposition home or self-care (01) ==
LOC: ED SRH 23:08
DX: R11.2 Nausea with vomiting, unspecified (principal); R19.7 Diarrhea, unspecified; D72.829 Elevated white blood cell count, unspecified; I10 Essential (primary) hypertension
CPT/HCPCS: 90004; 90100; 90197; 90469; 92235; 95059